=== PATIENT | male | born 1960 | race Caucasian/White ===

== ENCOUNTER → 2019-01-16 12:04 | Outpatient (CLI) | payer OTHER, SELFPAY ==
[2019-01-16 13:19] LABS: Anion Gap 5 (5-15); BUN 20 mg/dL (7-18); BUN/Creat Ratio 17.2 RATIO (10-20); Chloride 107 mmol/L (98-107); Cholesterol 200 mg/dL (200); Creatinine, Serum 1.16 mg/dL (0.70-1.30); EST Glomerular Filtration Rate 69 mL/min (>60); Est Glom Filt Rate - Afr Amer 83 mL/min (>60); Glucose 95 mg/dL (74-106); High Density Lipoprotein 49 mg/dL; PSA,Total - Annual Screen 1.42 ng/mL (0.00-4.00); Potassium 4.4 mmol/L (3.5-5.1); Sodium Level 138 mmol/L (136-145); Triglycerides 175 mg/dL; Very Low Density Lipoprotein 35 mg/dL (5-40)
== END ==
DX: Z00.00 Encounter for general adult medical examination without abnormal findings (principal); Z13.220 Encounter for screening for lipoid disorders; Z12.5 Encounter for screening for malignant neoplasm of prostate
CPT/HCPCS: 36415; 80048; 80061; 84153; G0103

== ENCOUNTER → 2021-07-04 11:52 | Outpatient (CLI) | payer OTHER, SELFPAY ==
[2021-07-04 13:05] LABS: Anion Gap 6 (5-15); BUN 23 mg/dL (7-18); BUN/Creat Ratio 20.4 RATIO (10-20); Calcium,Total 9.3 mg/dL (8.5-10.1); Chloride 109 mmol/L (98-107); Cholesterol 206 mg/dL (200); Creatinine, Serum 1.13 mg/dL (0.70-1.30); EST Glomerular Filtration Rate 70 mL/min (>60); Est Glom Filt Rate - Afr Amer 85 mL/min (>60); Glucose 95 mg/dL (74-106); High Density Lipoprotein 51 mg/dL; PSA,Total - Annual Screen 1.83 ng/mL (0.00-4.00); Potassium 4.2 mmol/L (3.5-5.1); Sodium Level 139 mmol/L (136-145); Triglycerides 158 mg/dL; Very Low Density Lipoprotein 32 mg/dL (5-40)
== END ==
DX: Z00.00 Encounter for general adult medical examination without abnormal findings (principal); Z13.220 Encounter for screening for lipoid disorders; Z12.5 Encounter for screening for malignant neoplasm of prostate
CPT/HCPCS: 36415; 80048; 80061; 84153; G0103

== ENCOUNTER → 2021-08-05 14:25 | Outpatient (CLI) | payer OTHER, SELFPAY ==
--- NOTE | 2021-08-05 14:30 | RAD_ITS ---
STUDY: X-RAY - RIGHT WRIST REASON FOR EXAM: Male, 60 years old. WRIST PAIN TECHNIQUE: 4 view(s) of the wrist were obtained. COMPARISON: None. FINDINGS: Normal visualized distal radius and ulna. Normal radiocarpal articulation. Normal distal radioulnar articulation. Normal carpal bones. Normal carpal articulations. Normal carpometacarpal articulation of the thumb. Normal second through fifth carpometacarpal articulations. Normal visualized metacarpal bones. The soft tissue structures are unremarkable. RAD/Wrist min 3 Views IMPRESSION: Normal x-ray examination of the wrist. Electronically Signed: Shine Hernandez MD at 9:22 EDT Tel , Service support ,
== END ==
DX: M25.531 Pain in right wrist (principal)
CPT/HCPCS: 73110

== ENCOUNTER → 2023-07-13 | Outpatient (CLI) | payer OTHER, SELFPAY ==
[2023-07-13 10:55] LABS: Anion Gap 5 (5-15); BUN 24 mg/dL (7-18); BUN/Creat Ratio 20.9 RATIO (10-20); Chloride 109 mmol/L (98-107); Cholesterol 197 mg/dL (200); Creatinine, Serum 1.15 mg/dL (0.70-1.30); EST Glomerular Filtration Rate 68 mL/min (>60); Est Glom Filt Rate - Afr Amer 83 mL/min (>60); Glucose 107 mg/dL (74-106); High Density Lipoprotein 49 mg/dL; PSA,Total - Annual Screen 1.84 ng/mL (0.00-4.00); Potassium 4.4 mmol/L (3.5-5.1); Sodium Level 138 mmol/L (136-145); Thyroid Stim Hormone (TSH) 2.16 uIU/mL (0.358-3.74); Triglycerides 105 mg/dL; Very Low Density Lipoprotein 21 mg/dL (5-40)
== END | disposition home or self-care (01) ==
DX: Z00.00 Encounter for general adult medical examination without abnormal findings (principal); Z12.5 Encounter for screening for malignant neoplasm of prostate; R53.83 Other fatigue; E78.2 Mixed hyperlipidemia
CPT/HCPCS: 36415; 80048; 80061; 84153; 84443; G0103

== ENCOUNTER 2024-03-05 08:52 | Day surgery (SDC) | payer OTHER, SELFPAY ==
--- NOTE | 2024-03-05 | COLBX_PTH ---
PATIENT: JAY HOFFMANN LOC: [facility] U#:[id number] AGE/SX: 63/M ROOM: RE03/05/[address]: Dr. Murali Baumann DO : 1960 BED: DIS: 03/05/2024 SPEC #: [id number] RECD: 03/05/24 12:23 STATUS: TEODORA HUNTER #: [id number] YULI: 03/05/24 00:[address]: Murali Baumann DEPT: SURGICAL PATHOLOGY RECD BY: Naseem Viveros ENTERED: 03/05/24 12:24 SP TYPE: COLON BX OT DR: Dr. Antione Domingo MD Tissues: Rectum, NOS Procedures: Surgery Specimen Level IV HEADER OPERATION: Colonoscopy- open access and polypectomy PRE-OP DIAGNOSIS: Screening TISSUE SUBMITTED: Rectal polyp MICROSCOPIC DIAGNOSIS Rectal polyp, polypectomy: Hyperplastic polyp with marked tumor cautery artifacts. SJ/mr 03/06/2024 MICROSCOPIC DESCRIPTION Slides are reviewed. GROSS DESCRIPTION Received in fixative is one container labeled with the patient's name and designated Rectal polyp. The specimen consists of one irregular fragment of light rubin soft tissue that measures 0.4 x 0.1 x 0.1 cm. The specimen is totally submitted in one cassette. RASHIDA/ 03/05/24 TC:1 CPT: 94155
[2024-03-05 09:02] VITALS: BP 135/85; PULSE 82; RESP 16; TEMP 36.7; O2SAT 98; BMI 35.2
[2024-03-05] MEDS: Lactated Ringers 1,000 ML 15 ML IV (09:07)
--- NOTE | 2024-03-05 10:01 | HP.PCM_ITS ---
HPI - General General Date of Admission: 03/05/24 Date of Service: 03/05/24 Chief Complaint: Screening colonoscopy HPI Narrative JAY HOFFMANN, is a 63 M who presents today for screening colonoscopy. He had a colonoscopy approximately 10 years ago without any problems. Denies to have any change in bowel habits such as notable diarrhea, bleeding or new onset constipation. Overall he is in very good health. [facility] Medical History (Updated 02/29/24 @ 09:38 by Taylor Fraire) Chronic cough Gastric reflux Non-smoker PONV (postoperative nausea and vomiting) Wears glasses Home Medications NK 01/10/24 [History Last Taken Unknown] Allergy/AdvReac Type Severity Reaction Status Date / Time No Known Allergies Allergy Verified 03/05/24 09:02 Surgical History (Updated 02/29/24 @ 09:31 by Taylor Fraire) History of cornea transplant History of wisdom tooth extraction Hx of colonoscopy Social History (Updated 01/10/24 @ 08:56 by Rashida Membreno) household members: spouse current occupational status: employed Smoking Status: Never smoker alcohol intake: never substance use type: does not use ROS Review of Systems ROS Unobtainable: other Constitutional Constitutional: Denies fatigue, fever(s), poor appetite, weight gain or weight loss ENT HEENT: Denies mouth lesions Cardiovascular Cardiovascular: Denies abdominal bloating, abdominal edema or abdominal pain Respiratory/Chest Respiratory/Chest: Denies change in mental status, change in phlegm color, chest congestion or chest tightness Gastrointestinal Gastrointestinal: Denies belching, bloating, change in bowel habits, change in stool character, chewing difficulty, coffee ground emesis, constipation, cramping, diarrhea, dyspepsia, dysphagia, early satiety, excessive flatus, fecal incontinence, heartburn, hematemesis, hematochezia, hemorrhoids, loose stools, melena, nausea, odynophagia, rectal bleeding, tenesmus, vomiting or weight changes Genitourinary Genitourinary: Denies abdominal discomfort, burning urination or itching Musculoskeletal Musculoskeletal: Reports as per HPI; Denies muscle weakness or myalgias Integumentary Integumentary: Denies jaundice Neurologic Neurologic: Denies lack of coordination or weakness Psychiatric Psychiatric: Denies confusion, depression, memory loss, mood swings, paranoia or suicidal ideation Endocrine Endocrinology: Denies systems reviewed and no addt'l complaints, except as documented Hematologic/Lymphatic Hematologic/Lymphatic: Denies anemia, easy bleeding, easy bruising or lymphadenopathy Allergic/Immunologic Allergic/Immunologic: Denies systems reviewed and no addt'l complaints, except as documented Vital Signs Vital Signs Vital Signs: 03/05/24 09:02 03/05/24 09:02 Temperature 98.1 F Temperature Source Temporal Pulse Rate 82 Respiratory Rate 16 Respiratory Pattern Normal Blood Pressure 135/85 H Blood Pressure Mean 101 Blood Pressure Source Monitor Blood Pressure Position Sitting Blood Pressure Location Right Arm Pulse Ox 98 Oxygen Delivery Method Room Air Weight Weight: 245 lb Body Mass Index (BMI) 35.2 Physical Exam Const alert, oriented x3, no apparent distress, healthy appearing and well nourished General Appearance: cooperative, comfortable, well kempt and well developed Orientation / Consciousness: awake and oriented to person HEENT Head and Scalp: normocephalic and atraumatic Face and Sinus: normal facial exam Mouth: oral and palatal mucosa normal Eyes General Eye: normal appearance of both eyes Neck full ROM Lymph Lymphatic: no lymphadenopathy noted Chest inspection of chest normal Resp normal respiratory effort and no use of accessory muscles Cardio regular rate and regular rhythm GI normal to inspection, nondistended, normoactive bowel sounds, soft to palpation, non-tender, non-distended and no masses Auscultation: normoactive bowel sounds Palpation: soft Percussion: normal to percussion Rectal Exam: visual inspection normal and normal sphincter tone no CVA tenderness Back/Spine no CVA tenderness and normal ROM Extremity normal to inspection Peripheral Pulses: Yes pulses 2+ throughout Skin no rashes or lesions noted General Skin Exam: no breakdown, elasticity normal and turgor normal Neuro oriented x3 Motor Exam: strength 5/5 throughout Psych mental status grossly normal Appearance: grossly normal Attitude: calm Activity / Motor Behavior: appropriate eye contact Speech: normal speech Thought Process: normal thought process Thought Content: normal thought content Attention / Concentration: attention grossly intact Memory / Cognition: memory grossly intact Insight: insight good Judgement: judgement good Assessment & Plan Assessment/Plan (1) Encounter for screening for malignant neoplasm of colon: PLAN: He was explained alternatives, benefits, risk including not withstanding bleeding, infection, sepsis, perforation, need for emergent surgery and . He will have an ASA of 2.
[2024-03-05 10:25] VITALS: BP 135/85; BP 97/56; PULSE 69; RESP 16; TEMP 36.6; O2SAT 97
--- NOTE | 2024-03-05 10:29 | OP.CCLET_ITS ---
03/05/2024 Irwin Domingo Re : Colonoscopy procedure for Medardo Lopez Dear Jose L This procedure was performed on Tuesday, March 05, 2024. My impressions and recommendations are as follows: Impressions : - One 5 mm polyp in the rectum, removed with a hot snare. Resected and retrieved. - Diverticulosis in the recto-sigmoid colon and in the sigmoid colon. - The examination was otherwise normal on direct and retroflexion views. Recommendations : - Discharge patient to home. - Resume previous diet. - Continue present medications. - Await pathology results. - Repeat colonoscopy in 5 years for surveillance. My findings are described in the full procedure note, which is enclosed. If I can be of further assistance, please feel free to contact me at . Sincerely, Murali Baumann, 03/05/2024 10:29:07 AM This report has been signed electronically.
--- NOTE | 2024-03-05 10:29 | OP.COLON_ITS ---
Patient Name: Medardo Lopez Procedure Date: 03/05/2024 9:55 AM Date of : 1960 Age: 63 Procedure: Colonoscopy Indications: Screening for colorectal malignant neoplasm Providers: Murali Baumann DO Referring MD: Irwin Domingo Medicines: Monitored Anesthesia Care Patient Profile: This is a 63 year old male. Refer to note in patient chart for documentation of history and physical. Last Colonoscopy: 10 years ago. Complications: No immediate complications. Procedure: Pre-Anesthesia Assessment: - Prior to the procedure, a History and Physical was performed, and patient medications and allergies were reviewed. The patient is competent. The risks and benefits of the procedure and the sedation options and risks were discussed with the patient. All questions were answered and informed consent was obtained. Patient identification and proposed procedure were verified by the physician in the pre-procedure area. Mental Status Examination: alert and oriented. Airway Examination: normal oropharyngeal airway and neck mobility. Respiratory Examination: clear to auscultation. CV Examination: normal. Prophylactic Antibiotics: The patient does not require prophylactic antibiotics. Prior Anticoagulants: The patient has taken no anticoagulant or antiplatelet agents. ASA Grade Assessment: II - A patient with mild systemic disease. After reviewing the risks and benefits, the patient was deemed in satisfactory condition to undergo the procedure. The anesthesia plan was to use monitored anesthesia care (MAC). Immediately prior to administration of medications, the patient was re-assessed for adequacy to receive sedatives. The heart rate, respiratory rate, oxygen saturations, blood pressure, adequacy of pulmonary ventilation, and response to care were monitored throughout the procedure. The physical status of the patient was re-assessed after the procedure. After I obtained informed consent, the scope was passed under direct vision. Throughout the procedure, the patient's blood pressure, pulse, and oxygen saturations were monitored continuously. The Colonoscope was introduced through the anus and advanced to the cecum, identified by appendiceal orifice and ileocecal valve. The colonoscopy was performed without difficulty. The patient tolerated the procedure well. The quality of the bowel preparation was adequate. The ileocecal valve, appendiceal orifice, and rectum were photographed. Scope In: 10:08:27 AM Scope Withdrawal Time 0 hours 9 minutes 17 seconds Scope Out: 10:19:37 AM Total Procedure Duration Time 0 hours 11 minutes 10 seconds Findings: The perianal and digital rectal examinations were normal. A 5 mm polyp was found in the rectum. The polyp was sessile. The polyp was removed with a hot snare. Resection and retrieval were complete. Verification of patient identification for the specimen was done. Estimated blood loss was minimal. A few small-mouthed diverticula were found in the recto-sigmoid colon and sigmoid colon. The exam was otherwise without abnormality on direct and retroflexion views. Impression: - One 5 mm polyp in the rectum, removed with a hot snare. Resected and retrieved. - Diverticulosis in the recto-sigmoid colon and in the sigmoid colon. - The examination was otherwise normal on direct and retroflexion views. Recommendation: - Discharge patient to home. - Resume previous diet. - Continue present medications. - Await pathology results. - Repeat colonoscopy in 5 years for surveillance. Procedure Code(s): --- Professional --- 09539, Colonoscopy, flexible; with removal of tumor(s), polyp(s), or other lesion(s) by snare technique CPT copyright 2021 [employer]. All rights reserved. The codes documented in this report are preliminary and upon amphibian crewmember review may be revised to meet current compliance requirements. Murali Baumann DO 03/05/2024 10:29:07 AM This report has been signed electronically. Number of Addenda: 0 Note Initiated On: 03/05/2024 9:55 AM
[2024-03-05 10:30] VITALS: BP 135/85; BP 99/56; PULSE 67; RESP 16; O2SAT 92
[2024-03-05 10:35] VITALS: BP 135/85; BP 95/52; PULSE 70; RESP 16; O2SAT 98
[2024-03-05 10:40] VITALS: BP 106/75; BP 135/85; PULSE 74; RESP 16; TEMP 36.9; O2SAT 96
[2024-03-05 11:10] VITALS: BP 135/85
== END 2024-03-05 11:16 | disposition home or self-care (01) ==
LOC: EN 08:53 → AC 08:54
PROVIDERS: Visit Provider Internal Medicine Gastroenterology
PROC: 0DJD8ZZ Inspection of Lower Intestinal Tract, Via Natural or Artificial Opening Endoscopic (ICD-10-PCS; CPT 45378; principal; 2024-03-05 09:55)
DX: Z12.11 Encounter for screening for malignant neoplasm of colon (principal); K57.30 Diverticulosis of large intestine without perforation or abscess without bleeding; K62.1 Rectal polyp; K21.9 Gastro-esophageal reflux disease without esophagitis
CPT/HCPCS: 45385; 88305; J7120; J2405